=== PATIENT | male | born 1990 | race African-American/Black ===

== ENCOUNTER 2017-08-27 14:00 | Emergency (ER) | payer MEDICAID ==
[~2017-08-27] VITALS: Ht 167.6 cm; Wt 68.0 kg
[2017-08-27 14:15] VITALS: BP 132/68
[2017-08-27] MEDS ORDERED: LIDOCAINE HCL/PF 1% 30 ML VIAL TP ONE (14:30)
[2017-08-27] MEDS ORDERED: ACETAMINOPHEN ES 500 MG TABLET PO ONE (14:30)
[2017-08-27] MEDS ORDERED: TDAP [DIPH/PERTUSSIS/TET] 0.5 ML VIAL IM ONE (14:30)
== END 2017-08-27 15:11 | disposition home or self-care (01) ==
LOC: ER 14:04
DX: S61.215A Laceration without foreign body of left ring finger without damage to nail, initial encounter (principal); W26.0XXA Contact with knife, initial encounter; Y93.G1 Activity, food preparation and clean up; Y92.090 Kitchen in other non-institutional residence as the place of occurrence of the external cause; Y99.8 Other external cause status
CPT/HCPCS: 12001; 90471; 90715; 99283; A4606; J3490; Z7610

== ENCOUNTER 2017-09-06 11:30 | Emergency (ER) | payer MEDICAID ==
[~2017-09-06] VITALS: Ht 172.7 cm; Wt 68.0 kg
[2017-09-06 11:35] VITALS: BP 129/75
== END 2017-09-06 12:08 | disposition home or self-care (01) ==
LOC: ER 11:31
DX: S61.215D Laceration without foreign body of left ring finger without damage to nail, subsequent encounter (principal)
CPT/HCPCS: 99281; A4606; Z7610; Z7502